=== PATIENT | female | born 1995 | race Caucasian/White ===

== ENCOUNTER 2021-11-29 19:07 | Emergency (ER) | payer MEDICAID ==
[~2021-11-29] VITALS: Ht 149.9 cm; Wt 57.9 kg
[2021-11-29] MEDS ORDERED: IBUPROFEN 400MG TABLET PO ONE (21:15)
[2021-11-29 22:35] VITALS: BP 121/81
[2021-11-29] MEDS ORDERED: TETANUS, DIPHTHERIA, PERTUSSIS VAC/PF 0.5ML (>10YR OLD) IM ONE (23:30)
== END 2021-11-30 00:17 | disposition home or self-care (01) ==
LOC: ER 19:07
DX: S02.2XXA Fracture of nasal bones, initial encounter for closed fracture (principal); W22.8XXA Striking against or struck by other objects, initial encounter; Y93.89 Activity, other specified; Y92.89 Other specified places as the place of occurrence of the external cause; Y99.8 Other external cause status
CPT/HCPCS: 70486; 90471; 90715; 99284